=== PATIENT | male | born 1985 ===

== ENCOUNTER 2021-07-01 05:49 | Day surgery (SDC) | payer OTHER | END 2021-07-01 11:50 | disposition home or self-care (01) | LOC: CIR.AMB 05:49 | PROVIDERS: ATTEND Orthopaedic Surgery | DX: S46.121A Laceration of muscle, fascia and tendon of long head of biceps, right arm, initial encounter (principal); Z20.822 Contact with and (suspected) exposure to COVID-19 ==

== ENCOUNTER 2021-08-10 06:30 | Day surgery (SDC) | payer OTHER | END 2021-08-10 12:30 | disposition home or self-care (01) | LOC: CIR.AMB 06:30 | PROVIDERS: ATTEND Orthopaedic Surgery Hand Surgery | DX: G56.01 Carpal tunnel syndrome, right upper limb (principal); Z20.822 Contact with and (suspected) exposure to COVID-19 ==